=== PATIENT | male | born 1980 | race Two or more races ===

== ENCOUNTER 2023-11-15 14:48 | Emergency (ER) | payer SELFPAY ==
--- NOTE | 2023-11-15 15:06 | XR_ITS ---
FINAL REPORT CLINICAL HISTORY: work injury FINDINGS: Right forearm Two views were obtained. There is no acute fracture or dislocation. The joint spaces appear normal. No soft tissue abnormality is identified. IMPRESSION: No acute process. Reviewed, Interpreted and Dictated by Adelfo Segura III, MD Transcribed by Rossy Baldwin Authenticated and [facility]
--- NOTE | 2023-11-15 15:06 | XR_ITS ---
FINAL REPORT CLINICAL HISTORY: work injury FINDINGS: Right wrist Three views were obtained. There is no acute fracture or dislocation. The joint spaces appear normal. No soft tissue abnormality is identified. IMPRESSION: No acute process. Reviewed, Interpreted and Dictated by Adelfo Segura III, MD Transcribed by Rossy Baldwin Authenticated and [facility]
--- NOTE | 2023-11-15 15:06 | XR_ITS ---
FINAL REPORT CLINICAL HISTORY: work injury FINDINGS: Right hand Three views were obtained. There is no acute fracture or dislocation. The joint spaces appear normal. No soft tissue abnormality is identified. IMPRESSION: No acute process. Reviewed, Interpreted and Dictated by Adelfo Segura III, MD Transcribed by Rossy Baldwin Authenticated and [facility]
--- NOTE | 2023-11-15 15:06 | XR_ITS ---
FINAL REPORT CLINICAL HISTORY: work injury FINDINGS: Right elbow Three views were obtained. There is no acute fracture or dislocation. The joint spaces appear normal. No soft tissue abnormality is identified. IMPRESSION: No acute process. Reviewed, Interpreted and Dictated by Adelfo Segura III, MD Transcribed by Rossy Baldwin Authenticated and [facility]
[2023-11-15 15:16] VITALS: BP 135/97; PULSE 73; RESP 20; TEMP 36.8; O2SAT 97; BMI 4555.4
--- NOTE | 2023-11-15 15:40 | EXP.UTC ---
Discharge Plan Disposition Patient Disposition: Home, Self-Care Condition: Good Referrals Follow up/Referrals: Provider,Referral, MD [Primary Care Provider] - See instructions Activity Restrictions/Add. Instructions Additional Instructions/Restrictions: *RICE, Rest the extremity, Ice 15-20 minutes 3-4 times daily, Compress- wear the bishop wrap as discussed as much as possible to help reduce swelling and pain, Elevate the extremity when at rest *Bishop wrap and Velcro wrist splint is for support and help control swelling, use it except in the shower. Be sure that is not to tight but not to loose either *Elevate when resting? *Ibuprofen 600-800mg every 6-8 hours as needed for pain an inflammation. If need something more can take Tylenol in between doses of Ibuprofen to help Immediately follow up with your family doctor for new or worsening of symptoms, or no noticeable improvement over the next 3-5 days Clinical Impressions Clinical Impression: Contusion of hand Qualifiers: Encounter type: initial encounter Laterality: right Qualified Code(s): S60.221A - Contusion of right hand, initial encounter Contracture of elbow Qualifiers: Laterality: right Qualified Code(s): M24.521 - Contracture, right elbow Instructions Patient Instructions: DI for Contusion Print Language Print Language: Citizen Of [place] Discharge ED Provider: Ayleen Lewis [facility] General Stated complaint: WC-pain and swelling to R hand and elbow Mode of Arrival: Ambulatory Source of Information: Patient Time Seen by Provider: 11/15/23 15:40 Description of Symptoms (Recalled from Triage Doc. by RN): juan a durant hit patient on right hand and elbow region HEENT Symptoms (Recalled from RN notes): No Resp Symptoms (Recalled from RN notes): No Skin Symptoms (Recalled from RN notes): No MS Symptoms (Recalled from RN notes): Yes (possible right hand/fingers broken) Functional Status (Recalled from RN notes): ROM limited in right hand History of Present Illness Provider Complaint: Patient primarily Citizen Of [place] speaking but can speak some [place]ese and understand [place]ese, States rail from juan a fell and hit him in the top of his right hand and he fell back and hit his elbow now having pain from elbow to his hand Asked patient if he needed interpretur and he said no he could understand me Worker's Comp Is this a Worker's Comp case?: No [facility] Disclaimer: The information contained in this section may have been updated after the patient was seen, as this information can be updated by other users. Social History Smoking Status: Unknown if ever smoked alcohol intake: never current occupational status: employed Travel in the last 8 weeks: None ROS Obtained: Yes All systems reviewed & no additional complaints except as documented and Yes Systems reviewed as appropriate & no additional complaints except as documented Constitutional Constitutional: Reports system reviewed and no additional complaints, except as documented and Reports as per HPI ENT Ears, Nose, Mouth, and Throat: Reports system reviewed and no additional complaints, except as documented and Reports as per HPI Cardiovascular Cardiovascular: Reports system reviewed and no additional complaints, except as documented and Reports as per HPI Respiratory Respiratory: Reports system reviewed and no additional complaints, except as documented and Reports as per HPI Gastrointestinal Gastrointestingal: Reports system reviewed and no additional complaints, except as documented and as per HPI Musculoskeletal Musculoskeletal: Reports system reviewed and no additional complaints, except as documented, Reports as per HPI and Reports other Comments: Pain in top of right hand, forearm and elbow Physical Exam General General appearance: alert and in no apparent distress Respiratory Respiratory exam: Present normal lung sounds bilaterally; Absent respiratory distress or wheezes Cardiovascular Cardiovascular exam: Present regular rate, normal rhythm and normal heart sounds Expanded Upper Extremity Exam Right: Elbow exam: Present tenderness; Absent swelling, abrasion, ecchymosis or erythema Forearm/Wrist exam: Present tenderness; Absent swelling, abrasion, ecchymosis or erythema Hand exam: Present tenderness, swelling and ecchymosis; Absent laceration Hand L/R back image: 1. bruising and swelling noted Vascular exam: Normal capillary refill and radial pulse Neurological Exam Neurological exam: Present alert, oriented X3 and normal gait Medical Decision Making Ed Inquiry Pt receiving controlled substance: No Ed was queried for this patient: No Vital Signs: 11/15/23 15:16 Temperature 98.3 F Temperature Source Oral Pulse Rate [Left Brachial] 73 Respiratory Rate 20 Blood Pressure [Left Arm] 135/97 H Blood Pressure Mean [Left Arm] 109 02 Sat by Pulse Oximetry 97 Orders (Tests/Meds): ORDERS Category Date Time Status Forearm XR right 2 views [XR forearm RT 2V] Stat Exams 11/15/23 15:06 Taken XR elbow RT min 3V Stat Exams 11/15/23 15:06 Taken XR hand RT min 3V Stat Exams 11/15/23 15:06 Taken XR wrist RT min 3V Stat Exams 11/15/23 15:06 Taken Radiology Data #1: Image(s): Hand Image Reviewed: Yes I have reviewed radiologist's interpretation NO acute process #2: Image(s): Forearm and Wrist Image Reviewed: Yes I have reviewed radiologist's interpretation Right Wrist: No acute process Right Forearm: no acute process #3: Image(s): Elbow Image Reviewed: Yes I have reviewed radiologist's interpretation No acute process Procedures Orthopedic Splinting/Casting Injury #1: Side: right Upper Extremity Injury Location: elbow, wrist and hand Upper Extremity Immobilizer: wrist splint and Bishop wrap Post Cast/Splinting Neuro Status: intact and no change Post Cast/Splinting Vasc Status: intact and no change
[2023-11-15 16:51] VITALS: BP 135/97; PULSE 73; RESP 20; TEMP 36.8
== END 2023-11-15 16:40 | disposition home or self-care (01) ==
PROVIDERS: Emergency Provider Nurse Practitioner
DX: S60.221A Contusion of right hand, initial encounter (principal); M25.521 Pain in right elbow; W20.8XXA Other cause of strike by thrown, projected or falling object, initial encounter
CPT/HCPCS: 73080; 73090; 73110; 73130; 99204; 99212; G0463